=== PATIENT | male | born 1955 | race Caucasian/White ===

== ENCOUNTER 2016-12-02 03:32 | Emergency (ER) | payer OTHER ==
[~2016-12-02] VITALS: Ht 175.3 cm; Wt 100.0 kg
[~2016-12-02 03:32] MED LIST: ATEN50TA7 PO; MECL-114 PO
[2016-12-02 03:34] VITALS: BP 113/68; PULSE 78; RESP 16; O2SAT 98
--- NOTE | 2016-12-02 03:42 | ED.REPORT ---
HPI-General Illness Date of Service Dec 02, 2016 ED Provider: Ronnie Shook MD The patient is a 61 year old male w/ a hx of frequent pneumonia and HTN who presents to the ED due to a productive cough for the past week. Sputum has been whitish foamy, not colored and not bloody. Associated symptoms include fever, diarrhea, abdominal pain, and SOB. Pt thinks that he has pneumonia again. Pt recently quit smoking for a week. He denies melena and hematochezia. Nursing Notes Stated Complaint: SHORT OF BREATH Chief Complaint: Respiratory Complaints Nursing Notes Reviewed: Yes Allergies: Coded Allergies: Penicillins (Verified Allergy, Severe, 12/02/16) simvastatin (Verified Allergy, Severe, 12/02/16) Scheduled Albuterol HFA (Proair HFA) 8.5 Gm Hfa.aer.ad 2 PUFFS INHALATION Q4H Atenolol-Expunged Drug, Do Not Renew! (Atenolol-Expunged Drug, Do Not Renew!) 50 Mg Tablet 50 MG PO BID Cefuroxime Axetil (Cefuroxime) 500 Mg Tablet 500 MG PO BID Prednisone (PredniSONE) 20 Mg Tablet 60 MG PO DAILY Scheduled PRN Meclizine (Bonine) 25 Mg Tab.chew 25 MG PO TID PRN PRN For Dizziness General Time Seen by MD: 03:42 Chief Complaint Cough Hx Obtained From: Patient Arrived By: Walk-in Sudden in Onset?: Yes Onset Occurred: 1 week ago Symptom Duration: Since onset Severity: Current: No pain currently Past Medical History Past Medical History Hx pneumonia Gallstones Reports: Hypertension Past Surgical History denies Smoking History Current Every Day Smoker Social History Alcohol Use: Denies alcohol use Other Social History: Good social support, , Local resident Ambulatory Status Independent Review of Systems Full Review of Systems Constitutional: Reports: Fever Respiratory: Reports: Prod cough, clear, Shortness of breath GI: Reports: Abdominal pain, Diarrhea, Denies: Hematochezia Complete sys rev & neg: except as marked. Physical Exam Vital Signs Vital Signs Date Time Temp Pulse Resp B/P Pulse Ox O2 Delivery O2 Flow Rate FiO2 12/02/16 05:57 105 16 108/56 95 Room Air 12/02/16 04:15 69 16 97 Room Air 12/02/16 03:34 37.5 78 16 113/68 98 Room Air Initial VS: Reviewed Head / Eyes: Atraumatic, Normocephalic, PERRL Abdomen / GI: Soft, Non-tender, No guarding, No rebound, No distention Extremities: Vascular intact, Neuro intact, No swelling, No tenderness Neurologic: Alert, Oriented Psychiatric: Mood/affect normal, Behavior normal General/Constitutional: Awake, Alert, Cooperative mildly dry appearing Neck: No JVD Wheezing / Retractions: Positive: Wheezing expiratory Rales / Rhonchi: Positive: Rales bilateral bases Cardiovascular: Heart rate NL, Regular rhythm heart noises inaudible over chest soundsdd Interpretation & Diagnostics Lab Results Interpretation Result Diagram: 12/02/16 0345 12/02/16 0345 Test 12/02/16 03:45 White Blood Count 8.7th/mm3 (3.8-10.1) Red Blood Count 5.47mil/mm3 (4.40-5.80) Hemoglobin 15.7g/dL (13.8-17.2) Hematocrit 45.9% (41.0-50.0) Mean Corpuscular Volume 83.9fL (81-100) Mean Corpuscular Hemoglobin 28.7pg (27.0-35.0) Mean Corpuscular Hemoglobin Concent 34.2% (32.0-37.0) Red Cell Distribution Width 13.1% (12.3-15.4) Platelet Count 109bil/L (150-400) Neutrophils (%) (Auto) 73.0% (40-74) Lymphocytes (%) (Auto) 15.3% (14-46) Monocytes (%) (Auto) 11.2% (4-12) Eosinophils (%) (Auto) 0% (0-5) Basophils (%) (Auto) 0.2% (0-3) Prothrombin Time 10.0sec (8.1-12.5) Prothromb Time International Ratio 0.94ratio Sodium Level 133mEq/L (134-144) Potassium Level 3.9mEq/L (3.5-5.2) Chloride Level 99mEq/L (97-108) Carbon Dioxide Level 16mmol/L (18-29) Blood Urea Nitrogen 21mg/dL (8-27) Creatinine 1.29mg/dL (0.76-1.27) Estimat Glomerular Filtration Rate 60mL/min (>59) Glucose Level 213mg/dL (60-99) Lactic Acid Level 2.2mmol/L (0.4-2.0) Calcium Level 8.8mg/dL (8.5-10.1) Magnesium Level 1.9mg/dL (1.6-2.6) Total Bilirubin 0.5mg/dL (0.0-1.2) Aspartate Amino Transf (AST/SGOT) 19U/L (0-50) Alanine Aminotransferase (ALT/SGPT) 12U/L (0-44) Alkaline Phosphatase 56U/L (25-160) Troponin T 0.010ug/L (0.0-0.011) Pro-B-Type Natriuretic Peptide 34.25pg/mL (0-210) Total Protein 7.0g/dL (6.4-8.4) Albumin 4.1g/dL (3.4-5.0) Procalcitonin 0.14ng/mL (0.00-0.08) X-Ray Chest Interpretation Chest Xray Interpretation: IMPRESSION: no acute findings View: Portable Interpretation / Wet Read by: Wet read ED physician Re-Eval/Medical Decision Med Decision/Clinical Course 61-year-old smoker presents with COPD symptoms and a mildly productive cough. X-rays negative for lobar infiltrate. He appears to have COPD bronchitis. Begun with steroid course, Rocephin here with Ceftin to follow, albuterol puffer and spacer, and his recent discontinuation of smoking strongly reinforced. Time of Eval: 05:31 Patient Status: Condition improved, Moderate relief Re-Evaluation/Progress Note: Pt rechecked. Breathing is much improved after treatment. He feels better and requests to go home. F/U and RTER warnings given. Pt understands and agrees with plan. Counseled Regarding: Diagnosis, Lab results, Need for follow-up, When/why to return to ED Discharge & Departure Primary Impression: Chronic obstructive bronchitis Additional Impressions: Gastroesophageal reflux Esophagitis presence: without esophagitis Qualified Code: K21.9 - Gastro- esophageal reflux disease without esophagitis Diarrhea Diarrhea type: unspecified type Qualified Code: R19.7 - Diarrhea, unspecified Disposition: Home Discharge Condition All VS Reviewed: Yes Condition: Stable Additional Instructions: Your chest x-ray does not show signs of pneumonia. I am sending you home with a course of steroids to take three tablets daily for seven days. Take antibiotics twice daily for ten days. Use your inhaler as needed, two puffs every 3-4 hours, always with spacer. Follow up with your primary care physician. Call Saturday morning for follow-up early this week. Return to the Emergency Department for any new or worsening symptoms. It is critical that you quit smoking. You have a good start already established, and you must not go back. You can take Pepcid (famotidine) once or twice daily as needed for heartburn. The generic is much cheaper and equally effective. Referrals: Adam Zaragoza MD (PCP) Adelita Attestation Portion of this note were transcribed by Brea Pitt. I, Dr. Shook, personally performed the history, physical exam, and medical decision-making: I reviewed and confirmed the accuracy for the information in the transcribed note. Signed by: adelita Humphrey, 12/02/16 0500 copies to: Adam Zaragoza MD, Christopher W MD Dec 02, 2016 03:42 Brea Pitt Dec 02, 2016 03:49
[2016-12-02 03:56] LABS: BASOPHILS % (AUTO) 0.2 % (0-3); EOSINOPHILS % (AUTO) 0 % (0-5); MONOCYTES % (AUTO) 11.2 % (4-12); Mean Corpuscular Hemoglobin 28.7 pg (27.0-35.0); Mean Corpuscular Volume 83.9 fL (81-100); Platelet Count 109 bil/L (150-400)
[2016-12-02] MEDS ORDERED: Albuterol 2.5 mg/3 mL Inhalation Solution NEB ONE (04:00)
[2016-12-02] MEDS ORDERED: 0.9% Sodium Chloride 1,000 ML IV ONE (04:00)
[2016-12-02] MEDS ORDERED: MethylprednisoLONE Sodium Succinate 62.5 mg/mL 2 mL Inj IVPUSH ONE (04:00)
[2016-12-02] MEDS ORDERED: Albuterol-Ipratropium 3 mL Inhalation Solution NEB ONE (04:00)
[2016-12-02 04:15] VITALS: PULSE 69; RESP 16; O2SAT 97
[2016-12-02 04:18] LABS: INR 0.94 ratio
[2016-12-02] MEDS ORDERED: cefTRIAXone Inj 2,000 MG in Dextrose 5% Minibag Plus 50 ML IV ONE (04:20)
[2016-12-02 04:34] LABS: TROPONIN T 0.01 ug/L (0.0-0.011)
[2016-12-02 04:52] LABS: Magnesium 1.9 mg/dL (1.6-2.6)
[2016-12-02] MEDS ORDERED: _Albuterol-HFA 60 Puff Inhaler INHALATION PRN (05:35)
[2016-12-02] MEDS ORDERED: PRE20 PO (05:38)
[2016-12-02] MEDS ORDERED: CEFU500T61 PO (05:38)
[2016-12-02] MEDS ORDERED: ALBU8.5H2 INHALATION (05:39)
[2016-12-02 05:57] VITALS: BP 108/56; PULSE 105; RESP 16; O2SAT 95
--- NOTE | 2016-12-02 09:17 | DRSVH ---
PROCEDURE: X-RAY CHEST, TWO VIEWS ([id number]) INDICATIONS: cough, SOB TECHNIQUE: 2 views of the chest were acquired. COMPARISON: [facility], CR, XR CHEST 2VW, 05/31/2015, 11:21. FINDINGS: Surgical changes and devices: None. Lungs and pleura: No pleural effusions or pneumothorax. Lungs are clear. Mediastinum: Mediastinal contours are normal. Heart size is normal. Bones and chest wall: No suspicious bony abnormalities. Soft tissues appear unremarkable. IMPRESSION: No acute cardiopulmonary disease process. Dictated by: Libby Elder MD, PhD on 12/02/2016 at 9:15 Approved by: Libby Elder MD, PhD on 12/02/2016 at 9:16
== END 2016-12-02 05:40 | disposition home or self-care (01) ==
LOC: SED 03:32
DX: J44.9 Chronic obstructive pulmonary disease, unspecified (principal); K21.9 Gastro-esophageal reflux disease without esophagitis; R19.7 Diarrhea, unspecified; I10 Essential (primary) hypertension; F17.200 Nicotine dependence, unspecified, uncomplicated; Z88.0 Allergy status to penicillin; Z88.8 Allergy status to other drugs, medicaments and biological substances
CPT/HCPCS: 36415; 71020; 80053; 83605; 83735; 83880; 84145; 84484; 85025; 85610; 87040; 93005; 94640; 94664; 96361; 96365; 96375; 99285; J0696; J2930; J7030; J7613; J7620